=== PATIENT | male | born 1995 | race American Indian/Alaskan Native ===

== ENCOUNTER 2018-07-12 22:03 | Emergency (ER) | payer MEDICAID, OTHER ==
[2018-07-12 22:21] VITALS: BP 145/85
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
== END 2018-07-13 01:51 | disposition home or self-care (01) ==
LOC: ED 22:03
DX: M25.561 Pain in right knee (principal); V87.7XXA Person injured in collision between other specified motor vehicles (traffic), initial encounter; Y93.89 Activity, other specified; Y92.488 Other paved roadways as the place of occurrence of the external cause; Y99.8 Other external cause status
CPT/HCPCS: 99282